=== PATIENT | male | born 1965 | race Two or more races ===

== ENCOUNTER → 2021-09-06 09:06 | Outpatient (CLI) | payer OTHER | END | disposition home or self-care (01) | LOC: NUCLEAR 09:06 | PROVIDERS: ATTEND Physical Medicine & Rehabilitation | DX: M89.9 Disorder of bone, unspecified (principal) | CPT/HCPCS: 78315; A9503 ==

== ENCOUNTER 2025-04-07 15:45 | Outpatient (CLI) | payer OTHER | END 2025-04-07 15:51 | disposition home or self-care (01) | LOC: LAB 15:45 | PROVIDERS: ATTEND Specialist | DX: L02.91 Cutaneous abscess, unspecified (principal) ==